=== PATIENT | female | born 1960 | race Caucasian/White ===

== ENCOUNTER 2016-11-05 04:26 | Emergency (ER) | payer SELFPAY ==
[~2016-11-05] VITALS: Ht 165.1 cm; Wt 85.9 kg
[2016-11-05 07:08] VITALS: BP 157/97
== END 2016-11-05 07:11 | disposition home or self-care (01) ==
LOC: EME 04:26
PROC: 0HQ1XZZ Repair Face Skin, External Approach (ICD-10-PCS; principal; 2016-11-05)
DX: S01.81XA Laceration without foreign body of other part of head, initial encounter (principal); W18.30XA Fall on same level, unspecified, initial encounter; Z86.19 Personal history of other infectious and parasitic diseases; R55 Syncope and collapse; Z87.891 Personal history of nicotine dependence
CPT/HCPCS: 93005; 99281; 99284